=== PATIENT | male | born 1935 | race Two or more races ===

== ENCOUNTER → 2016-05-25 | Outpatient (CLI) | payer OTHER ==
[~2016-05-25] MED LIST: BRIM0.1S3 OP; LATA0.0015 OP; TIMO0.5S32 OP
[2016-05-25 09:11] LABS: Urine RBC None Seen /hpf (0 - 3)
[2016-05-25 09:26] LABS: Basophils # (auto) 0 uL; Basophils % (auto) 0.7 % (0.0-2.0); Eosinophils # (auto) 0.2 uL; Eosinophils % (auto) 3.2 % (0.0-7.0); Hematocrit 45.7 % (41.0-53.0); Hemoglobin 15.3 g/dL (13.5-17.5); Lymphocytes # (auto) 1.2 uL; Lymphocytes % (auto) 24.1 % (10.0-50.0); Mean Corpuscular Hgb Conc. 33.4 g/dL (32.0-36.0); Mean Corpuscular Volume 98.7 fL (80.0-100.0); Mean Platelet Volume 10.8 fL (7.4-10.4); Monocytes # (auto) 0.5 uL; Monocytes % (auto) 10.1 % (0.0-12.0); Neutrophils # (auto) 3.2 uL; Neutrophils % (auto) 61.9 % (37.0-80.0); Platelet Count (auto) 150 10^3/uL (140-450); Red Cell Distribution Width 14.3 % (11.6-16.0); White Blood Cell 5.1 10^3/uL (4.4-10.8)
[2016-05-25 09:37] LABS: Urine Bilirubin Negative (Negative); Urine Blood Negative /uL (Negative); Urine Color Yellow (Yellow); Urine Glucose Normal (Normal); Urine Ketone Negative (Negative); Urine Nitrite Negative (Negative); Urine Squamous Epithelial Cell FEW /hpf (<5); Urine Urobilinogen Normal (Negative)
[2016-05-25 09:42] LABS: Albumin 3.6 g/dL (3.4-5.0); BUN/Creatinine Ratio 25.8; Bilirubin, Total 0.8 mg/dL (0.2-1.0); Calcium 8.6 mg/dL (8.5-10.1); Potassium 4.4 mmol/L (3.5-5.1); Total Protein 6.9 g/dL (6.4-8.2)
== END | disposition home or self-care (01) ==
LOC: LAB 08:21
PROVIDERS: ATTEND Internal Medicine
DX: I10 Essential (primary) hypertension (principal); Z00.00 Encounter for general adult medical examination without abnormal findings; E55.9 Vitamin D deficiency, unspecified
CPT/HCPCS: 36415; 80053; 80061; 81001; 82306; 84153; 85025

== ENCOUNTER → 2016-06-29 | Outpatient (CLI) | payer OTHER | END | disposition home or self-care (01) | LOC: LAB 10:56 | PROVIDERS: ATTEND Psychiatry & Neurology Neurology | DX: G30.1 Alzheimer's disease with late onset (principal) | CPT/HCPCS: 84207; 84425 ==

== ENCOUNTER → 2017-04-05 | Outpatient (CLI) | payer OTHER ==
[2017-04-05 10:34] LABS: Albumin 3.9 g/dL (3.4-5.0); BUN/Creatinine Ratio 29.8; Bilirubin, Total 0.7 mg/dL (0.2-1.0); Calcium 8.7 mg/dL (8.5-10.1); Potassium 3.9 mmol/L (3.5-5.1); Total Protein 7.3 g/dL (6.4-8.2)
[2017-04-05 10:42] LABS: Basophils # (auto) 0 uL; Basophils % (auto) 0.6 % (0.0-2.0); Eosinophils # (auto) 0.2 uL; Eosinophils % (auto) 3.1 % (0.0-7.0); Hematocrit 45.2 % (41.0-53.0); Hemoglobin 15.3 g/dL (13.5-17.5); Lymphocytes # (auto) 1.2 uL; Lymphocytes % (auto) 23.9 % (10.0-50.0); Mean Corpuscular Hemoglobin 33.7 pg (28.0-32.0); Mean Corpuscular Hgb Conc. 33.8 g/dL (32.0-36.0); Mean Corpuscular Volume 99.6 fL (80.0-100.0); Monocytes # (auto) 0.5 uL; Monocytes % (auto) 10.2 % (0.0-12.0); Neutrophils # (auto) 3.1 uL; Neutrophils % (auto) 62.2 % (37.0-80.0); Nucleated Red Blood Cells % 0.1 %; Platelet Count (auto) 163 10^3/uL (140-450); Red Blood Cells 4.54 10^6/uL (4.5-5.90); Red Cell Distribution Width 13.8 % (11.8-14.3); White Blood Cell 5.1 10^3/uL (4.4-10.8)
== END | disposition home or self-care (01) ==
LOC: LAB 09:27
PROVIDERS: ATTEND Physician Assistant
DX: N18.2 Chronic kidney disease, stage 2 (mild) (principal); E78.4 Other hyperlipidemia; D69.6 Thrombocytopenia, unspecified; E55.9 Vitamin D deficiency, unspecified
CPT/HCPCS: 36415; 80053; 80061; 82306; 84153; 85025

== ENCOUNTER 2017-10-21 22:17 | Emergency (ER) | payer OTHER ==
[~2017-10-21] VITALS: Ht 170.2 cm; Wt 63.5 kg
[2017-10-22 05:47] VITALS: BP 175/77
== END 2017-10-22 10:00 | disposition home or self-care (01) ==
LOC: MERGE 22:17 → ER 22:17
DX: S63.92XA Sprain of unspecified part of left wrist and hand, initial encounter (principal); E78.5 Hyperlipidemia, unspecified; W01.0XXA Fall on same level from slipping, tripping and stumbling without subsequent striking against object, initial encounter; Y93.89 Activity, other specified; Y99.8 Other external cause status; Y92.89 Other specified places as the place of occurrence of the external cause
CPT/HCPCS: 73130

== ENCOUNTER → 2018-01-08 | Outpatient (CLI) | payer OTHER | END | disposition home or self-care (01) | LOC: XYW 11:07 | PROVIDERS: ATTEND Internal Medicine Cardiovascular Disease | DX: I35.1 Nonrheumatic aortic (valve) insufficiency (principal) | CPT/HCPCS: 93306 ==

== ENCOUNTER → 2019-08-06 | Outpatient (CLI) | payer OTHER ==
[~2019-08-06] MED LIST changes: -LATA0.0015 OP; +LATA0.0019 OP
== END | disposition home or self-care (01) ==
LOC: XYW 10:05
PROVIDERS: ATTEND Internal Medicine
DX: I10 Essential (primary) hypertension (principal); R07.9 Chest pain, unspecified
CPT/HCPCS: 93306

== ENCOUNTER → 2019-09-29 | Outpatient (CLI) | payer OTHER ==
[~2019-09-29] VITALS: Ht 170.2 cm; Wt 72.6 kg
[~2019-09-29] MED LIST changes: +ADENOSINE 61 MG in GIVE UN-DILUTED 0 ML IV STA
[2019-09-29 08:58] VITALS: BP 180/77
== END | disposition home or self-care (01) ==
LOC: XY 07:33
PROVIDERS: ATTEND Internal Medicine
DX: I10 Essential (primary) hypertension (principal)
CPT/HCPCS: 78452; 93017; A9500; J0153

== ENCOUNTER → 2020-01-01 | Outpatient (CLI) | payer OTHER ==
[~2020-01-01] MED LIST changes: -ADENOSINE 61 MG in GIVE UN-DILUTED 0 ML IV STA
[2020-01-01 09:48] LABS: Albumin 3.7 g/dL (3.4-5.0); Calcium 8.7 mg/dL (8.5-10.1); Potassium 3.8 mmol/L (3.5-5.1)
[2020-01-01 09:54] LABS: Bilirubin, Total 1.1 mg/dL (0.2-1.0); Total Protein 6.8 g/dL (6.4-8.2)
== END | disposition home or self-care (01) ==
LOC: LAB 09:11
PROVIDERS: ATTEND Internal Medicine
DX: Z12.5 Encounter for screening for malignant neoplasm of prostate (principal); I10 Essential (primary) hypertension; E78.5 Hyperlipidemia, unspecified; I49.9 Cardiac arrhythmia, unspecified
CPT/HCPCS: 36415; 80053; 80061; 83036; 84153; 84443

== ENCOUNTER → 2020-08-12 | Outpatient (CLI) | payer OTHER ==
[2020-08-12 10:17] LABS: Albumin 3.5 g/dL (3.4-5.0); Potassium 3.9 mmol/L (3.5-5.1)
[2020-08-12 10:25] LABS: BUN/Creatinine Ratio 30.9; Bilirubin, Total 0.8 mg/dL (0.2-1.0); Calcium 8.4 mg/dL (8.5-10.1); Total Protein 6.8 g/dL (6.4-8.2)
== END | disposition home or self-care (01) ==
LOC: LAB 09:19
PROVIDERS: ATTEND Internal Medicine
DX: Z00.00 Encounter for general adult medical examination without abnormal findings (principal); R73.03 Prediabetes
CPT/HCPCS: 36415; 80053; 80061; 83036

== ENCOUNTER → 2021-10-10 | Outpatient (CLI) | payer OTHER | END | disposition home or self-care (01) | LOC: XYW 15:42 | PROVIDERS: ATTEND Internal Medicine | DX: I08.8 Other rheumatic multiple valve diseases (principal); I48.0 Paroxysmal atrial fibrillation | CPT/HCPCS: 93306 ==

== ENCOUNTER → 2021-10-24 | Outpatient (CLI) | payer OTHER | END | disposition home or self-care (01) | LOC: XYW 09:50 | PROVIDERS: ATTEND Internal Medicine | DX: I10 Essential (primary) hypertension (principal); I65.29 Occlusion and stenosis of unspecified carotid artery | CPT/HCPCS: 93886 ==

== ENCOUNTER → 2022-03-23 | Outpatient (CLI) | payer OTHER ==
[2022-03-23 11:04] LABS: Basophils # (auto) 0 10 ^3/uL (0-0.2); Basophils % (auto) 0.7 % (0.0-2.0); Eosinophils # (auto) 0.2 10 ^3/uL (0-0.8); Eosinophils % (auto) 3.5 % (0.0-7.0); Hematocrit 43.8 % (41.0-53.0); Hemoglobin 14.8 g/dL (13.5-17.5); Lymphocytes # (auto) 1.3 10 ^3/uL (0.4-5.4); Lymphocytes % (auto) 24.9 % (10.0-50.0); Mean Corpuscular Hemoglobin 33.1 pg (28.0-32.0); Mean Corpuscular Hgb Conc. 33.8 g/dL (32.0-36.0); Monocytes # (auto) 0.6 10 ^3/uL (0-1.3); Monocytes % (auto) 11.4 % (0.0-12.0); Neutrophils # (auto) 3.2 10 ^3/uL (1.6-8.6); Neutrophils % (auto) 59.5 % (37.0-80.0); Nucleated Red Blood Cells % 0.1 %; Red Blood Cells 4.47 10^6/uL (4.5-5.90); White Blood Cell 5.3 10^3/uL (4.4-10.8)
[2022-03-23 11:25] LABS: Albumin 3.6 g/dL (3.4-5.0); Calcium 8.9 mg/dL (8.5-10.1); Potassium 4.1 mmol/L (3.5-5.1)
[2022-03-23 11:30] LABS: BUN/Creatinine Ratio 33.7; Bilirubin, Total 1.1 mg/dL (0.2-1.0); Total Protein 6.8 g/dL (6.4-8.2)
== END | disposition home or self-care (01) ==
LOC: LAB 10:44
PROVIDERS: ATTEND Internal Medicine
DX: I10 Essential (primary) hypertension (principal); R42 Dizziness and giddiness; F03.90 Unspecified dementia, unspecified severity, without behavioral disturbance, psychotic disturbance, mood disturbance, and anxiety; N40.0 Benign prostatic hyperplasia without lower urinary tract symptoms; E78.5 Hyperlipidemia, unspecified
CPT/HCPCS: 36415; 80053; 80061; 83036; 84443; 85025

== ENCOUNTER → 2023-03-01 | Outpatient (CLI) | payer OTHER ==
[~2023-03-01] MED LIST changes: -LATA0.0019 OP; +LATA0.008 OP
[2023-03-01 09:36] LABS: Urine WBC None Seen /hpf (0 - 3)
[2023-03-01 10:08] LABS: Basophils # (auto) 0 10 ^3/uL (0-0.2); Basophils % (auto) 0.7 % (0.0-2.0); Eosinophils # (auto) 0.2 10 ^3/uL (0-0.8); Eosinophils % (auto) 4.2 % (0.0-7.0); Hematocrit 44.6 % (41.0-53.0); Hemoglobin 14.9 g/dL (13.5-17.5); Lymphocytes # (auto) 1.5 10 ^3/uL (0.4-5.4); Lymphocytes % (auto) 28.9 % (10.0-50.0); Mean Corpuscular Hemoglobin 33.5 pg (28.0-32.0); Mean Corpuscular Hgb Conc. 33.4 g/dL (32.0-36.0); Mean Corpuscular Volume 100.3 fL (80.0-100.0); Monocytes # (auto) 0.6 10 ^3/uL (0-1.3); Neutrophils # (auto) 2.9 10 ^3/uL (1.6-8.6); Neutrophils % (auto) 55.2 % (37.0-80.0); Red Blood Cells 4.44 10^6/uL (4.5-5.90); Red Cell Distribution Width 14.3 % (11.8-14.3); White Blood Cell 5.3 10^3/uL (4.4-10.8)
[2023-03-01 10:17] LABS: Urine Bacteria NONE SEEN /hpf (None Seen); Urine Blood Negative /uL (Negative); Urine Clarity Clear (Clear); Urine Color Yellow (Yellow); Urine Protein, UAD Negative (Negative); Urine Specific Gravity 1.015 (1.001-1.035); Urine Urobilinogen Normal (Negative)
[2023-03-01 10:58] LABS: Triglycerides 137 mg/dL (< 150)
[2023-03-01 10:59] LABS: Alanine Aminotransferase 14 U/L (7-40); Albumin 3.9 g/dL (3.2-4.8); Alkaline Phosphatase 65 U/L (46-116); Anion Gap 6 (5-15); Aspartate Aminotransferase 18 U/L (13-40); BUN/Creatinine Ratio 27.8 (10.0-20.0); Bilirubin, Total 1.1 mg/dL (0.2-1.0); Blood Urea Nitrogen 22 mg/dL (9-23); Calcium 8.9 mg/dL (8.5-10.1); Carbon Dioxide 27 mmol/L (20-30); Chloride 105 mmol/L (98-107); Cholesterol 163 mg/dL (< 200); Glucose 88 mg/dL (74-106); HDL Cholesterol 43 mg/dL (40-59); LDL Cholesterol 113 mg/dL (< 100); Sodium 138 mmol/L (136-145); Total Protein 6.3 g/dL (5.7-8.2)
== END | disposition home or self-care (01) ==
LOC: LAB 09:24
PROVIDERS: ATTEND Internal Medicine
DX: R53.1 Weakness (principal); I10 Essential (primary) hypertension; E78.5 Hyperlipidemia, unspecified; I48.0 Paroxysmal atrial fibrillation
CPT/HCPCS: 36415; 80053; 80061; 81001; 83036; 84443; 85025

== ENCOUNTER → 2023-07-23 | Outpatient (CLI) | payer OTHER ==
[2023-07-23 10:37] LABS: Folate (Folic Acid) 21.9 ng/mL (>5.38)
== END | disposition home or self-care (01) ==
LOC: LAB 09:42
PROVIDERS: ATTEND Internal Medicine
DX: Z00.00 Encounter for general adult medical examination without abnormal findings (principal); E78.5 Hyperlipidemia, unspecified; F03.90 Unspecified dementia, unspecified severity, without behavioral disturbance, psychotic disturbance, mood disturbance, and anxiety
CPT/HCPCS: 36415; 82306; 82607; 82746; 84443

== ENCOUNTER → 2023-09-23 | Outpatient (CLI) | payer OTHER | END | disposition home or self-care (01) | LOC: XYW 15:49 | PROVIDERS: ATTEND Internal Medicine | DX: I08.2 Rheumatic disorders of both aortic and tricuspid valves (principal); R42 Dizziness and giddiness | CPT/HCPCS: 93306 ==

== ENCOUNTER → 2023-11-20 | Outpatient (CLI) | payer OTHER ==
[~2023-11-20] VITALS: Ht 167.6 cm; Wt 59.0 kg
[2023-11-20] MEDS: ADENOSINE 50 MG in GIVE UN-DILUTED 0 ML IV ONE (12:30)
== END | disposition home or self-care (01) ==
LOC: XYW 09:17
PROVIDERS: ATTEND Internal Medicine
DX: I48.91 Unspecified atrial fibrillation (principal)
CPT/HCPCS: 93017; J0153

== ENCOUNTER → 2024-07-08 | Outpatient (CLI) | payer OTHER ==
[2024-07-08 12:11] LABS: Urine Bacteria None Seen /hpf (None Seen)
[2024-07-08 12:18] LABS: Basophils # (auto) 0 10 ^3/uL (0-0.2); Basophils % (auto) 0.7 % (0.0-2.0); Eosinophils # (auto) 0.3 10 ^3/uL (0-0.8); Eosinophils % (auto) 4.5 % (0.0-7.0); Hematocrit 45.7 % (41.0-53.0); Hemoglobin 15.3 g/dL (13.5-17.5); Lymphocytes # (auto) 1.7 10 ^3/uL (0.4-5.4); Lymphocytes % (auto) 29.6 % (10.0-50.0); Mean Corpuscular Hemoglobin 33.6 pg (28.0-32.0); Mean Corpuscular Hgb Conc. 33.4 g/dL (32.0-36.0); Mean Corpuscular Volume 100.5 fL (80.0-100.0); Monocytes # (auto) 0.6 10 ^3/uL (0-1.3); Monocytes % (auto) 9.5 % (0.0-12.0); Neutrophils # (auto) 3.3 10 ^3/uL (1.6-8.6); Neutrophils % (auto) 55.7 % (37.0-80.0); Nucleated Red Blood Cells % 0.1 %; Platelet Count (auto) 139 10^3/uL (140-450); Red Blood Cells 4.55 10^6/uL (4.5-5.90); White Blood Cell 5.9 10^3/uL (4.4-10.8)
[2024-07-08 12:32] LABS: Alanine Aminotransferase 12 U/L (7-40); Alkaline Phosphatase 71 U/L (46-116); Anion Gap 5 (5-15); Aspartate Aminotransferase 14 U/L (13-40); BUN/Creatinine Ratio 33.7 (10.0-20.0); Calcium 9.1 mg/dL (8.7-10.4); Carbon Dioxide 28 mmol/L (20-31); Chloride 107 mmol/L (98-107); Glucose 89 mg/dL (74-106); Potassium 4.2 mmol/L (3.5-5.1); Sodium 140 mmol/L (136-145); Total Protein 6.6 g/dL (5.7-8.2)
[2024-07-08 12:33] LABS: Bilirubin, Total 1.3 mg/dL (0.2-1.0); Blood Urea Nitrogen 30 mg/dL (9-23)
[2024-07-08 12:37] LABS: Urine Blood Negative /uL (Negative); Urine Clarity Clear (Clear); Urine Color Yellow (Yellow); Urine Protein, UAD Negative (Negative); Urine Specific Gravity 1.025 (1.001-1.035); Urine Squamous Epithelial Cell None Seen /hpf (<5); Urine Urobilinogen Normal (Negative); Urine WBC < 1 /HPF (0-3)
== END | disposition home or self-care (01) ==
LOC: LAB 11:50
PROVIDERS: ATTEND Internal Medicine
DX: I10 Essential (primary) hypertension (principal); N40.0 Benign prostatic hyperplasia without lower urinary tract symptoms; E78.5 Hyperlipidemia, unspecified; F02.80 Dementia in other diseases classified elsewhere, unspecified severity, without behavioral disturbance, psychotic disturbance, mood disturbance, and anxiety
CPT/HCPCS: 36415; 80053; 81001; 82306; 83036; 85025

== ENCOUNTER 2024-12-01 17:55 | Inpatient (IN) | payer OTHER ==
[~2024-12-01] VITALS: Ht 167.6 cm; Wt 63.0 kg
--- NOTE | 2024-12-01 18:47 | ED.PDOC ---
GI ASSESSMENT HPI Comments 89-year-old male with a history of AFib on sotalol, dyslipidemia, BPH and glaucoma brought in by daughter for evaluation of generalized weakness progressively worsening over the past 4 weeks. Patient's daughter states the patient has been unsteady on his feet for the last 2 weeks to the point where he has been barely able to ambulate with a walker. She also reports he has been fatigued and sleeping more than usual. Of concern is that the patient continually complains of abdominal discomfort, asking for Maalox daily, which does not seem to improve his upset stomach. She states the patient has been attempting to have bowel movements multiple times a day, and can be heard groaning in pain while attempting to have a bowel movement. He denies any diarrhea, but states he feels constipated. He denies any abdominal pain at this time, however daughter states he has had significantly decreased p.o. intake and somewhat increased confusion. Daughter states the patient has not had fever, sick contacts, nausea or vomiting. Chief Complaint: General Weakness Time Seen by MD: 18:40 Primary Care Provider: UNKNOWN Reviewed Notes: Nurses Notes, Medications, Allergies Allergies: Coded Allergies: NO KNOWN ALLERGIES (Unverified , 11/20/23) Home Meds Reported Medications Brimonidine Tartrate (Alphagan P) 0.1 % Janeth, 0.1 % OP TID 08/29/13 Latanoprost (LATANOPROST) 0.005 % Janeth, 0.005 % OP HS 08/29/13 Timolol Maleate (Ophth) (Timolol Maleate) 0.5 % Janeth, 0.5 % OP BID 08/29/13 Information Source: Relative Mode of Arrival: Wheelchair Timing: Months Duration: Since onset Prehospital treatment: None Quality: None Vomitus: None Stool: Impaction Severity: Moderate Recent: None Recent Hx of: None Pain Location: Diffuse Modifying Factors: Nothing Associated sign and symptoms: Abdominal Pain Past Medical History PAST MEDICAL HISTORY: AFIB, Dementia Past Medical History (Other): Prostate Enlargement Surgical History (Other): right-eye Family History Family History: No family hx of HTN Social History Smoker: Non-Smoker Alcohol: Denies ETOH Use Drugs: Denies Drug Use Lives In: Home Constitutional: reports: weakness; denies: chills, diaphoresis, fatigue, fever, malaise, sweats, others EENTM: denies: blurred vision, double vision, ear bleeding, ear discharge, ear drainage, ear pain, ear ringing, eye pain, eye redness, hearing loss, mouth pain, mouth swelling, nasal discharge, nose bleeding, nose congestion, nose pain, photophobia, tearing, throat pain, throat swelling, voice changes, others Respiratory: denies: cough, hemoptysis, orthopnea, SOB at rest, shortness of breath, SOB with excertion, stridor, wheezing, others Cardiovascular: denies: chest pain, dizzy spells, diaphoresis, Dyspnea on exertion, edema, irregular heart beat, left arm pain, lightheadedness, palpitations, PND, syncope, others Gastrointestinal: reports: abdominal pain, poor appetite; denies: abdomen distended, blood streaked bowels, constipated, diarrhea, dysphagia, difficulty swallowing, hematemesis, melena, nausea, poor fluid intake, rectal bleeding, rectal pain, vomiting, others Genitourinary: denies: burning, dysuria, flank pain, frequency, hematuria, i ncontinence, penile discharge, penile sore, pain, testicle pain, testicle swelling, urgency, others Neurological: denies: dizziness, fainting, headache, left sided numbness, left sided weakness, numbness, paresthesia, pre-existing deficit, right sided numbness, right sided weakness, seizure, speech problems, tingling, tremors, weakness, others Musculoskeletal: denies: back pain, gout, joint pain, joint swelling, muscle pain, muscle stiffness, neck pain, others Integumetry: reports: others (confusion); denies: bruises, change in color, change in hair/nails, dryness, laceration, lesions, lumps, rash, wounds Allergic/Immunocompromised: denies: Difficulty Healing, Frequent Infections, Hives, Itching, others Hematologic/Lymphatic: denies: anemia, blood clots, easy bleeding, easy bruising, swollen glands, others Endocrine: denies: excessive hunger, excessive sweating, excessive thirst, excessive urination, flushing, intolerance to cold, intolerance to heat, unexplained weight gain, unexplained weight loss, others Psychiatric: denies: anxiety, bipolar disorder, depression, hopeless, panic disorder, schizophrenia, sleepless, suicidal, others All Other Systems: Reviewed and Negative Physical Exam General Appearance: Moderate Distress HEENT: Other (Pupils and face symmetric. Dry mucous membranes.) Neck: Full Range of Motion, Normal Inspection Respiratory: Lungs Clear, No Accessory Muscle Use, No Respiratory Distress, Normal Breath Sounds Cardiovascular: No Edema, No JVD, Regular Rate/Rhythm Breast Exam: Deferred Gastrointestinal: Non Tender, Soft Genitalia: Deferred Pelvic: Deferred Rectal: Deferred Extremities: Normal inspection, Normal range of motion, Non-tender, No pedal edema Neurologic: Alert (Oriented x3 (baseline per daughter)), Normal Affect, Normal Mood, Other (Moves all extremities. No gross focal deficit.) Cerebellar Function: NOT DONE Reflexes: NOT DONE Skin: Dry, Normal Color, Warm Lymphatic: NOT DONE Was a procedure done? Was a procedure done?: No GI differential Dx Differential Diagnosis: Angina/KS, Constipation, Diverticular disease, Hernia, Inflammatory BD, Ischemic Bowel, UTI, Dehydration, Electrolyte Imbalance, Food Poisoning, Bacterial, Viral, Hypovolemia, Impaction, Malnutrition, Renal Failure, Anemia, Stress Ulcer X-Ray, Labs, Meds, VS Vital Signs Date Time Temp Pulse Resp B/P (MAP) Pulse Ox O2 Delivery O2 Flow Rate FiO2 12/01/24 17:55 69 12/01/24 17:55 98.3 61 18 136/68 95 98.3 Lab Test 12/01/24 19:44 12/01/24 18:56 Range/Units Troponin I High Sensitivity 8 8 </=54 ng/L White Blood Count 5.4 4.4-10.8 10^3/uL Red Blood Count 4.53 4.5-5.90 10^6/uL Hemoglobin 15.3 13.5-17.5 g/dL Hematocrit 44.4 41.0-53.0 % Mean Corpuscular Volume 98.1 80.0-100.0 fL Mean Corpuscular Hemoglobin 33.9 H 28.0-32.0 pg Mean Corpuscular Hemoglobin Concent 34.5 32.0-36.0 g/dL Red Cell Distribution Width 14.2 11.8-14.3 % Platelet Count 140 140-450 10^3/uL Mean Platelet Volume 9.4 6.9-10.8 fL Neutrophils (%) (Auto) 63.6 37.0-80.0 % Lymphocytes (%) (Auto) 22.4 10.0-50.0 % Monocytes (%) (Auto) 11.4 0.0-12.0 % Eosinophils (%) (Auto) 2.1 0.0-7.0 % Basophils (%) (Auto) 0.5 0.0-2.0 % Neutrophils # (Auto) 3.4 1.6-8.6 10 ^3/uL Lymphocytes # (Auto) 1.2 0.4-5.4 10 ^3/uL Monocytes # (Auto) 0.6 0-1.3 10 ^3/uL Eosinophils # (Auto) 0.1 0-0.8 10 ^3/uL Basophils # (Auto) 0 0-0.2 10 ^3/uL Nucleated Red Blood Cells 0.0 % Sodium Level 143 136-145 mmol/L Potassium Level 3.9 3.5-5.1 mmol/L Chloride Level 109 H 98-107 mmol/L Carbon Dioxide Level 25 20-31 mmol/L Anion Gap 9 5-15 Blood Urea Nitrogen 31 H 9-23 mg/dL Creatinine 0.87 0.700-1.30 mg/dL Glomerular Filtration Rate Calc 83 >90 mL/min BUN/Creatinine Ratio 35.6 H 10.0-20.0 Serum Glucose 122 H 74-106 mg/dL Lactic Acid Level 1.0 0.4-2.0 mmol/L Calcium Level 8.8 8.7-10.4 mg/dL Total Bilirubin 1.4 H 0.2-1.0 mg/dL Aspartate Amino Transferase (AST) 24 13-40 U/L Alanine Aminotransferase (ALT) 17 7-40 U/L Alkaline Phosphatase 60 46-116 U/L B-Type Natriuretic Peptide 74.87 0-100 pg/mL Total Protein 6.2 5.7-8.2 g/dL Albumin 3.7 3.2-4.8 g/dL [address] [address] Ph: [phone] DIAGNOSTIC IMAGING Diagnostic Imaging Report : [id number] Signed PATIENT: JOSUE BALLARDACCT: [id number] UNIT: [id number] : 1935 LOC: ER ROOM / BED: / AGE / SEX: 89 / M ADM STATUS: REG ER SERVICE [id number] ORDERING PHYSICIAN: VANESSA MATHEWS MD PROCEDURE(s): CXRP - CHEST PORTABLE REASON: gen weak ORDER NUMBER(s): [id number], ACCESSION NUMBER(s): [id number] EXAM: XY CHEST PORTABLE CLINICAL HISTORY: gen weak TECHNIQUE: Single frontal view of the chest WID: COMPARISON: XY CHEST TWO VIEWS ROUTINE on DOS: 07/23/23 FINDINGS: Lines and tubes: None Chest: The heart size and pulmonary vasculature is within normal limits. Calcified plaque projects over the aortic arch. No pleural effusion, pneumothorax, or consolidation. The osseous structures are grossly intact. IMPRESSION: 1. No acute cardiopulmonary abnormality. ATED BY: YNES BUSTAMANTE MD DICTATED DATE/TIME: 12/01/241920 SIGNED BY: YNES BUSTAMANTE MD SIGNED DATE/TIME: 12/01/241920 CC: [place] [id number] Ph: [phone] DIAGNOSTIC IMAGING Diagnostic Imaging Report : [id number] Signed PATIENT: JOSUE BALLARDACCT: [id number] UNIT: [id number] : 1935 LOC: ER ROOM / BED: / AGE / SEX: 89 / M ADM STATUS: REG ER SERVICE 44 ORDERING PHYSICIAN: VANESSA MATHEWS MD PROCEDURE(s): ABPL - CT AB PEL WO CON-NO ORAL OR IV REASON: abdominal pain, painful BMs, poor po intake ORDER NUMBER(s): [id number], ACCESSION NUMBER(s): [id number] Exam: CT CT AB PEL WO CON-NO ORAL OR IV History: abdominal pain, painful BMs, poor po intake Comparison Study: [facility] on DOS: 10/10/21 TECHNIQUE: Multidetector CT of the abdomen and pelvis was performed from lung bases to pubic symphysis. Imaging was performed without IV contrast. Axial, coronal and sagittal multiplanar reformats were obtained from the axial data set by the technologist. Radiation Dose Information: CT Dose: CTDI volume is 5.45 mGy. Dose-length product is 3.92 mGy*cm FINDINGS: Bibasilar atelectasis. Partially visualized heart is unremarkable. Micronodular contour of the liver. Otherwise, liver, spleen, gallbladder, pancreas and adrenal glands are unremarkable. 7 x 5.4 x 7.2 cm mass of the lower pole of the right kidney which does not measure simple fluid. Mild nonspecific bilateral perinephric fat stranding. Thickening of the urinary bladder which may be from inadequate distention. Prostate measures 3.6 x 5.5 x 5 cm. Stomach is unremarkable. Small bowel loops are unremarkable. Appendix is unremarkable. Large amount of fecal material within the colon with rectal fecal impaction. Rectal wall thickening with perirectal edema. No evidence of intraperitoneal free air or free fluid. No evidence of aortic aneurysm. Moderate atherosclerotic calcification of the aorta and bilateral iliacs. No significant lymphadenopathy. Umbilical region soft tissue thickening. Soft tissues otherwise unremarkable. Sclerotic focus of the left pelvic bone which may represent a bone island with a blastic lesion not excluded. IMPRESSION: Constipation with rectal fecal impaction and rectal stercoral colitis. 7 x 5.4 x 7.2 cm mass of the lower pole of the right kidney which does not measure as simple fluid. Ultrasound and contrast-enhanced imaging is recommended for further evaluation. Enlarged prostate. Recommend correlation with PSA. Mild wall thickening of the urinary bladder which may be due to inadequate distention. Correlation with urinalysis is recommended to exclude cystitis. ATED BY: MARLA HOLCOMB DO DICTATED DATE/TIME: 12/01/241931 SIGNED BY: MARLA HOLCOMB DO SIGNED DATE/TIME: 12/01/241931 CC: X-Ray, Labs, Meds, VS Comment 89-year-old male with a history of AFib on sotalol, dyslipidemia, BPH and glaucoma presenting with generalized weakness, constipation, painful bowel movements, upset stomach, decreased p.o. intake and fatigue. Vitals unremarkable Exam unremarkable Chest x-ray unremarkable CT abdomen and pelvis IMPRESSION: Constipation with rectal fecal impaction and rectal stercoral colitis. 7 x 5.4 x 7.2 cm mass of the lower pole of the right kidney which does not measure as simple fluid. Ultrasound and contrast-enhanced imaging is recommended for further evaluation. Enlarged prostate. Recommend correlation with PSA. Mild wall thickening of the urinary bladder which may be due to inadequate distention. Correlation with urinalysis is recommended to exclude cystitis. CBC unremarkable, CMP remarkable for BUN 31, lactate normal, troponin negative. BNP pending Patient treated with the following in the ED: 1 L 0.9 normal saline IV bolus, Protonix 40 mg IV, Zosyn 4.5 g IV On re-evaluation, patient denies any abdominal pain. Abdominal exam is benign. Plan is to admit the patient for disimpaction, IV antibiotics and hydration. Time of 1ST Reevaluation: 19:10 Reevaluation 1ST: Unchanged Patient Education/Counseling: Diagnosis, Treatment Family Education/Counseling: Diagnosis, Treatment SEPSIS Sepsis Screen Date sepsis recognized/suspect: Dec 01, 2024 Time Sepsis recognized/suspect: 1754 Recent Procedure: No On Antibiotic Therapy: No Respiratory Rate >20: No Heart Rate >90: No Temp<36 C (96.8 F) or >38.3 C: No SBP <90 or MAP <65 mmHG: No New Acute Mental Status Change: No Is the patient on CPAP, BIPAP,: No Physician Orders Electrocardigram (12/01/24 17:57) B-Type Natriuretic Peptide (12/01/24 18:45) Chest Portable (12/01/24 18:45) Urinalysis (12/01/24 18:45) Ct Ab Pel Wo Con-No Oral Or Iv (12/01/24 18:45) Blood Culture (12/01/24 18:45) Urine Bacterial Culture (12/01/24 18:45) Troponin-I Hs (12/01/24 19:45) Troponin-I Hs (12/01/24 21:45) Vital Signs Date Time Temp Pulse Resp B/P (MAP) Pulse Ox O2 Delivery O2 Flow Rate FiO2 12/01/24 17:55 69 12/01/24 17:55 98.3 61 18 136/68 95 98.3 Laboratory Tests Test 12/01/24 18:56 Lactic Acid Level 1.0 mmol/L (0.4-2.0) White Blood Count 5.4 10^3/uL (4.4-10.8) Departure 1 Departure Time of Disposition: 20:28 Impression: Primary Impression: Fecal impaction Additional Impressions: Stercoral colitis Dehydration Failure to thrive in adult Disposition: ADMITTED INPATIENT Admit to: Med Surg Condition: Guarded Critical Care Note Critical Care Time?: No Stability Stability form required: No Heart Score Heart Score: Heart Score Response (Comments) Value History N/A 0 EKG N/A 0 Age N/A 0 Risk Factors N/A 0 Troponin N/A 0 Total 0 I personally scribed for VANESSA MATHEWS MD ([email or web address]) on 12/01/24 at 18:47. Electronically submitted by Aisha Haro [email or web address]). I personally scribed for VANESSA MATHEWS MD ([email or web address]) on 12/01/24 at 19:42. Electronically submitted by Aisha Haro ([email or web address]). I personally scribed for VANESSA MATHEWS MD ([email or web address]) on 12/01/24 at 19:43. Electronically submitted by Aisha Haro ([email or web address]). VANESSA MATHEWS MD Dec 01, 2024 18:47
[2024-12-01 19:13] LABS: Hematocrit 44.4 % (41.0-53.0); Hemoglobin 15.3 g/dL (13.5-17.5); Mean Corpuscular Hemoglobin 33.9 pg (28.0-32.0); Mean Corpuscular Volume 98.1 fL (80.0-100.0); Nucleated Red Blood Cells % 0.0 %
--- NOTE | 2024-12-01 19:23 | DVH ---
EXAM: XY CHEST PORTABLE CLINICAL HISTORY: gen weak TECHNIQUE: Single frontal view of the chest WID: COMPARISON: XY CHEST TWO VIEWS ROUTINE on DOS: 07/23/23 FINDINGS: Lines and tubes: None Chest: The heart size and pulmonary vasculature is within normal limits. Calcified plaque projects over the aortic arch. No pleural effusion, pneumothorax, or consolidation. The osseous structures are grossly intact. IMPRESSION: 1. No acute cardiopulmonary abnormality.
[2024-12-01 19:30] LABS: Alanine Aminotransferase 17 U/L (7-40); Albumin 3.7 g/dL (3.2-4.8); Alkaline Phosphatase 60 U/L (46-116); Anion Gap 9 (5-15); BUN/Creatinine Ratio 35.6 (10.0-20.0); Calcium 8.8 mg/dL (8.7-10.4); Carbon Dioxide 25 mmol/L (20-31); Potassium 3.9 mmol/L (3.5-5.1); Sodium 143 mmol/L (136-145); Total Protein 6.2 g/dL (5.7-8.2)
[2024-12-01 19:32] LABS: Bilirubin, Total 1.4 mg/dL (0.2-1.0); Blood Urea Nitrogen 31 mg/dL (9-23); Chloride 109 mmol/L (98-107); Glucose 122 mg/dL (74-106)
--- NOTE | 2024-12-01 19:34 | DVH ---
Exam: CT CT AB PEL WO CON-NO ORAL OR IV History: abdominal pain, painful BMs, poor po intake Comparison Study: ECID on DOS: 10/10/21 TECHNIQUE: Multidetector CT of the abdomen and pelvis was performed from lung bases to pubic symphysi s. Imaging was performed without IV contrast. Axial, coronal and sagittal multiplanar reformats were obtained from the axial data set by the technologist. Radiation Dose Information: CT Dose: CTDI volume is 5.45 mGy. Dose-length product is 3.92 mGy*cm FINDINGS: Bibasilar atelectasis. Partially visualized heart is unremarkable. Micronodular contour of the liver. Otherwise, liver, spleen, gallbladder, pancreas and adrenal glands are unremarkable. 7 x 5.4 x 7.2 cm mass of the lower pole of the right kidney which does not measure simple fluid. Mild nonspecific bilateral perinephric fat stranding. Thickening of the urinary bladder which may be from inadequate distention. Prostate measures 3.6 x 5.5 x 5 cm. Stomach is unremarkable. Small bowel loops are unremarkable. Appendix is unremarkable. Large amount of fecal material within the colon with rectal fecal impaction. Rectal wall thickening with perirecta l edema. No evidence of intraperitoneal free air or free fluid. No evidence of aortic aneurysm. Moderate atherosclerotic calcification of the aorta and bilateral il iacs. No significant lymphadenopathy. Umbilical region soft tissue thickening. Soft tissues otherwise unremarkable. Sclerotic focus of the left pelvic bone which may represent a bone island with a blastic lesion not excluded. IMPRESSION: Constipation with rectal fecal impaction and rectal stercoral colitis. 7 x 5.4 x 7.2 cm mass of the lower pole of the right kidney which does not measure as simple fluid. U ltrasound and contrast-enhanced imaging is recommended for further evaluation. Enlarged prostate. Recommend correlation with PSA. Mild wall thickening of the urinary bladder which may be due to inadequate distention. Correlation wi urinalysis is recommended to exclude cystitis.
[2024-12-01] MEDS: PANTOPRAZOLE 40 MG/10 ML VIAL INJ IV ONE (20:17)
[2024-12-01] MEDS: SODIUM CHLORIDE 0.9% 1,000 ML IV ONE (20:17)
[2024-12-02] MEDS ORDERED: ONDANSETRON HCL 4 MG/2 ML VIAL IV PRN
[2024-12-02] MEDS ORDERED: ACETAMINOPHEN 325 MG TAB PO PRN
--- NOTE | 2024-12-02 00:13 | DVHHP2 ---
History of Present Illness Reason for Visit: Generalized weakness History of Present Illness 89-year-old male presents for evaluation of generalized weakness. Patient is brought into the emergency department by his daughter who reports patient having increased weakness and fatigue. Patient having difficulty ambulating as well. The patient has been diagnosed with dementia the yet he has not been started on any medication. Also patient complaining of some abdominal discomfort and feeling constipated. There was also decreased oral intake over the past couple of days and increased confusion. Past Medical History BPH, AFib, dementia Past Surgical History eye surgery Family History Noncontributory Smoke: No ALCOHOL: none Drugs: None Lives: with Family Review of Systems Review of Systems Review of systems are currently negative otherwise addressed in HPI. Allergies: Coded Allergies: NO KNOWN ALLERGIES (Unverified , 11/20/23) Medications Current Medications Medications Dose Ordered Sig/Marilyn Route Start Time Stop Time Status Last Admin Dose Admin Docusate Sodium 100 mg BID PO 12/02/24 10:00 UNV Ceftriaxone Sodium 50 ml @ 100 mls/hr DAILY@ IV 12/02/24 09:00 UNV Sotalol HCl 80 mg DAILY PO 12/02/24 10:00 UNV Tamsulosin HCl 0.4 mg QPM PO 12/02/24 18:00 UNV Finasteride 5 mg DAILY PO 12/02/24 10:00 UNV Ceftriaxone Sodium 50 ml @ 100 mls/hr DAILY@09 IV 12/02/24 09:00 UNV Pantoprazole Sodium 40 mg DAILY@0600 PO 12/02/24 06:00 UNV Ondansetron HCl 4 mg Q4HP PRN IV 12/02/24 00:00 UNV Acetaminophen 650 mg Q6HP PRN PO 12/02/24 00:00 UNV Exam Vital Signs Vital Signs Date Time Temp Pulse Resp B/P (MAP) Pulse Ox O2 Delivery O2 Flow Rate FiO2 12/01/24 17:55 69 12/01/24 17:55 98.3 18 136/68 95 98.3 Exam Gen: 89-year-old male in mild distress Skin: Warm, dry, normal color and texture, no rash. HEENT: Normocephalic atraumatic, mucous membranes moist and pink. Neck: Cervical and supraclavicular nodes normal without enlargement, trachea is midline, thyroid gland is normal without masses. Pulmonary: Clear to auscultation and percussion bilaterally. Cardiac: Regular rate and rhythm. No murmur Abdomen: Soft, nontender, nondistended, bowel sounds present all 4 quadrants, no guarding, no rigidity, no organomegaly. Extremities: No cyanosis, clubbing, no edema Neuro: Cranial nerves II through XII grossly intact, normal affect and speech, no focal motor deficits. Labs/Xrays ORDERING PHYSICIAN: VANESSA MATHEWS MD PROCEDURE(s): ABPL - CT AB PEL WO CON-NO ORAL OR IV REASON: abdominal pain, painful BMs, poor po intake ORDER NUMBER(s): [id number], ACCESSION NUMBER(s): [id number] Exam: CT CT AB PEL WO CON-NO ORAL OR IV History: abdominal pain, painful BMs, poor po intake Comparison Study: ECID on DOS: 10/10/21 TECHNIQUE: Multidetector CT of the abdomen and pelvis was performed from lung bases to pubic symphysis. Imaging was performed without IV contrast. Axial, coronal and sagittal multiplanar reformats were obtained from the axial data set by the technologist. Radiation Dose Information: CT Dose: CTDI volume is 5.45 mGy. Dose-length product is 3.92 mGy*cm FINDINGS: Bibasilar atelectasis. Partially visualized heart is unremarkable. Micronodular contour of the liver. Otherwise, liver, spleen, gallbladder, pancreas and adrenal glands are unremarkable. 7 x 5.4 x 7.2 cm mass of the lower pole of the right kidney which does not measure simple fluid. Mild nonspecific bilateral perinephric fat stranding. Thickening of the urinary bladder which may be from inadequate distention. Prostate measures 3.6 x 5.5 x 5 cm. Stomach is unremarkable. Small bowel loops are unremarkable. Appendix is unremarkable. Large amount of fecal material within the colon with rectal fecal impaction. Rectal wall thickening with perirectal edema. No evidence of intraperitoneal free air or free fluid. No evidence of aortic aneurysm. Moderate atherosclerotic calcification of the aorta and bilateral iliacs. No significant lymphadenopathy. Umbilical region soft tissue thickening. Soft tissues otherwise unremarkable. Sclerotic focus of the left pelvic bone which may represent a bone island with a blastic lesion not excluded. IMPRESSION: Constipation with rectal fecal impaction and rectal stercoral colitis. 7 x 5.4 x 7.2 cm mass of the lower pole of the right kidney which does not measure as simple fluid. Ultrasound and contrast-enhanced imaging is recommended for further evaluation. Enlarged prostate. Recommend correlation with PSA. Mild wall thickening of the urinary bladder which may be due to inadequate distention. Correlation with urinalysis is recommended to exclude cystitis. RING PHYSICIAN: VANESSA MATHEWS MD PROCEDURE(s): CXRP - CHEST PORTABLE REASON: gen weak ORDER NUMBER(s): [id number], ACCESSION NUMBER(s): [id number] EXAM: XY CHEST PORTABLE CLINICAL HISTORY: sean TECHNIQUE: Single frontal view of the chest WID: COMPARISON: XY CHEST TWO VIEWS ROUTINE on DOS: 07/23/23 FINDINGS: Lines and tubes: None Chest: The heart size and pulmonary vasculature is within normal limits. Calcified plaque projects over the aortic arch. No pleural effusion, pneumothorax, or consolidation. The osseous structures are grossly intact. IMPRESSION: 1. No acute cardiopulmonary abnormality. Labs Test 12/01/24 19:44 12/01/24 18:56 Range/Units Troponin I High Sensitivity 8 </=54 ng/L White Blood Count 5.4 4.4-10.8 10^3/uL Red Blood Count 4.53 4.5-5.90 10^6/uL Hemoglobin 15.3 13.5-17.5 g/dL Hematocrit 44.4 41.0-53.0 % Mean Corpuscular Volume 98.1 80.0-100.0 fL Mean Corpuscular Hemoglobin 33.9 H 28.0-32.0 pg Mean Corpuscular Hemoglobin Concent 34.5 32.0-36.0 g/dL Red Cell Distribution Width 14.2 11.8-14.3 % Platelet Count 140 140-450 10^3/uL Mean Platelet Volume 9.4 6.9-10.8 fL Neutrophils (%) (Auto) 63.6 37.0-80.0 % Lymphocytes (%) (Auto) 22.4 10.0-50.0 % Monocytes (%) (Auto) 11.4 0.0-12.0 % Eosinophils (%) (Auto) 2.1 0.0-7.0 % Basophils (%) (Auto) 0.5 0.0-2.0 % Neutrophils # (Auto) 3.4 1.6-8.6 10 ^3/uL Lymphocytes # (Auto) 1.2 0.4-5.4 10 ^3/uL Monocytes # (Auto) 0.6 0-1.3 10 ^3/uL Eosinophils # (Auto) 0.1 0-0.8 10 ^3/uL Basophils # (Auto) 0 0-0.2 10 ^3/uL Nucleated Red Blood Cells 0.0 % Sodium Level 143 136-145 mmol/L Potassium Level 3.9 3.5-5.1 mmol/L Chloride Level 109 H 98-107 mmol/L Carbon Dioxide Level 25 20-31 mmol/L Anion Gap 9 5-15 Blood Urea Nitrogen 31 H 9-23 mg/dL Creatinine 0.87 0.700-1.30 mg/dL Glomerular Filtration Rate Calc 83 >90 mL/min BUN/Creatinine Ratio 35.6 H 10.0-20.0 Serum Glucose 122 H 74-106 mg/dL Lactic Acid Level 1.0 0.4-2.0 mmol/L Calcium Level 8.8 8.7-10.4 mg/dL Total Bilirubin 1.4 H 0.2-1.0 mg/dL Aspartate Amino Transferase (AST) 24 13-40 U/L Alanine Aminotransferase (ALT) 17 7-40 U/L Alkaline Phosphatase 60 46-116 U/L B-Type Natriuretic Peptide 74.87 0-100 pg/mL Total Protein 6.2 5.7-8.2 g/dL Albumin 3.7 3.2-4.8 g/dL SEPSIS Sepsis Screen Date sepsis recognized/suspect: Dec 01, 2024 Time Sepsis recognized/suspect: 1754 Recent Procedure: No On Antibiotic Therapy: No Respiratory Rate >20: No Heart Rate >90: No Temp<36 C (96.8 F) or >38.3 C: No SBP <90 or MAP <65 mmHG: No New Acute Mental Status Change: No Is the patient on CPAP, BIPAP,: No Physician Orders Electrocardigram (12/01/24 17:57) Chest Portable (12/01/24 18:45) Ct Ab Pel Wo Con-No Oral Or Iv (12/01/24 18:45) Blood Culture (12/01/24 18:45) Urine Bacterial Culture (12/01/24 18:45) Urinalysis (12/01/24 22:26) Admit (12/01/24 23:54) Docusate Sodium Capsule (Colace Capsule) (12/02/24 10:00) Fleet Enema Adult (12/02/24 00:00) * [facility]st (12/01/24 23:58) Ceftriaxone 1gm/50ml D5w (Rocephin) (12/02/24 09:00) Sotalol Hcl (Betapace) (12/02/24 10:00) Tamsulosin Hydrochloride (Flomax) (12/02/24 18:00) Finasteride Tablet (Proscar Tablet) (12/02/24 10:00) Ceftriaxone 1gm/50ml D5w (Rocephin) (12/02/24 09:00) Pantoprazole Tablet (Protonix Tablet) (12/02/24 06:00) Basic Metabolic Panel (12/02/24 04:00) Ondansetron Hcl (Zofran) (12/02/24 00:00) Cardiac Diet-2gna,Lofat,Lochol (12/02/24 Breakfast) Condition: Stable (12/01/24 23:58) Acetaminophen Tablet (Tylenol Tablet) (12/02/24 00:00) Bedside Commode (12/01/24 23:58) Vital Signs Date Time Temp Pulse Resp B/P (MAP) Pulse Ox O2 Delivery O2 Flow Rate FiO2 12/01/24 17:55 69 12/01/24 17:55 98.3 61 18 136/68 95 98.3 Laboratory Tests Test 12/01/24 18:56 Lactic Acid Level 1.0 mmol/L (0.4-2.0) White Blood Count 5.4 10^3/uL (4.4-10.8) Medications Medications Dose Ordered Sig/Marilyn Route Start Time Stop Time Status Last Admin Dose Admin Pantoprazole Sodium 40 mg ONCE ONCE IV 12/01/24 18:45 12/01/24 18:49 DC 12/01/24 20:17 40 MG Sodium Chloride 1,000 ml @ 1,000 mls/hr Q1H ONCE IV 12/01/24 18:45 12/01/24 19:44 DC 12/01/24 20:17 1,000 MLS/HR Assessment/Plan Assessment/Plan Assessment Fecal impaction ? Stercoral colitis Dementia History of atrial fibrillation Failure to thrive Plan Admit the patient to [facility] to the hospitalist GI consult Rocephin Bowel regimen Resume home medications Continue treatment per orders. Plan discussed with: Daughter My Orders Orders - RIGO VOSS Procedure Category Date Status Time Urinalysis LAB 12/01/24 Logged 22:26 Admit ADMIT 12/01/24 Transmitted 23:54 Docusate Sodium PHA 12/02/24 Logged Capsule (Colace 10:00 Fleet Enema Adult PHA 12/02/24 Logged 00:00 * [facility] CONS 12/01/24 Transmitted 23:58 Ceftriaxone 1gm/50ml PHA 12/02/24 Logged D5w (Rocephin) 09:00 Sotalol Hcl (Betapace) PHA 12/02/24 Logged 10:00 Tamsulosin PHA 12/02/24 Logged Hydrochloride (Flomax) 18:00 Finasteride Tablet PHA 12/02/24 Logged (Proscar Tablet) 10:00 Ceftriaxone 1gm/50ml PHA 12/02/24 Logged D5w (Rocephin) 09:00 Pantoprazole Tablet PHA 12/02/24 Logged (Protonix Tablet) 06:00 Basic Metabolic Panel LAB 12/02/24 Logged 04:00 Ondansetron Hcl PHA 12/02/24 Logged (Zofran) 00:00 Cardiac DIET 12/02/24 Transmitted Diet-2gna,Lofat,Lochol Breakfast Condition: Stable RIK 12/01/24 In Process 23:58 Acetaminophen Tablet PHA 12/02/24 Logged (Tylenol Tablet) 00:00 Bedside Commode RIK 12/01/24 In Process 23:58 Date of Service: Dec 01, 2024 Billing Provider: RIGO VOSS Common Visit Codes: [id number] INP/OBS CARE (MOD) RIGO VOSS Dec 02, 2024 00:13
[2024-12-02 02:46] VITALS: BP 156/68; PULSE 56; RESP 16; TEMP 98.8; O2SAT 97
[2024-12-02 03:21] VITALS: BP 136/85; PULSE 76; RESP 17; TEMP 97.3; O2SAT 96
[2024-12-02] MEDS: PIPERACILLIN-TAZO 4.5GM 100 ML IV ONE (03:22)
[2024-12-02] MEDS: FLEET ENEMA(ADULT) 135 ML PR ONE ×2 (03:22→14:23)
[2024-12-02 05:00] VITALS: BP 147/78; PULSE 53; RESP 17; TEMP 97.8; O2SAT 94
[2024-12-02] MEDS: PANTOPRAZOLE 40 MG TAB PO SCH (06:25)
[2024-12-02 09:13] VITALS: BP 171/77; PULSE 56; RESP 12; TEMP 97.6; O2SAT 98
[2024-12-02 09:59] LABS: Anion Gap 8 (5-15); Carbon Dioxide 26 mmol/L (20-31); Potassium 3.7 mmol/L (3.5-5.1); Sodium 142 mmol/L (136-145)
[2024-12-02 10:05] LABS: BUN/Creatinine Ratio 23.8 (10.0-20.0); Blood Urea Nitrogen 19 mg/dL (9-23); Glucose 81 mg/dL (74-106)
[2024-12-02 10:07] LABS: Calcium 8.4 mg/dL (8.7-10.4); Chloride 108 mmol/L (98-107)
[2024-12-02] MEDS: DOCUSATE SOD 100 MG CAP PO SCH (10:25)
[2024-12-02] MEDS: FINASTERIDE 5 MG TAB PO SCH (10:25)
[2024-12-02] MEDS: SOTALOL HCL 80 MG TAB PO SCH (10:26)
--- NOTE | 2024-12-02 11:58 | DVH ---
RENAL ULTRASOUND History: kidney mass Comparison: 12/01/2024 Technique: Multiple real-time sonographic images of the kidney and bladder were obtained in conjuncti on with Doppler imaging. Findings: The right kidney measures 12.7 cm and demonstrates no evidence of hydronephrosis, perinephric fluid c ollection, or shadowing stone. Right renal lower pole mass with internal vascularity measuring 6.2 x 4.9 cm. The left kidney measures 9.8 cm and demonstrates no evidence of hydronephrosis, perinephric fluid col lection, or shadowing stone. Urinary bladder: Prevoid urinary bladder volume is 383 mL. Impression: 6.2 cm right renal lower pole mass with internal vascularity, concerning for renal cell carcinoma and other neoplasms. Recommend MRI abdomen with and without contrast and urology consultation.
--- NOTE | 2024-12-02 12:54 | DVHINCON2 ---
GI Consult Consult Note GI consult note Date of Consultation: 12/02/2024 Chief Complaint: Fecal impaction Referring Physician: Parish BAUTISTA H&P: 89-year-old [place] Islander-speaking patient admitted with complains of generalized weakness. Daughter at bedside is translating. Patient has complains of abdominal discomfort mostly in the upper side on and off for the past 2-3 months. And also has decreased appetite per daughter. Possible weight loss but unsure how many lb. No nausea or vomiting. Patient recently was having multiple small bowel movements, no melena or red blood in stool. Last bowel movement this morning again small amount past only per patient. No colonoscopy in past Past Medical History: BPH, AFib, dementia Past Surgical History: Eye surgery Social History: NO smoking, drinking ETOH and use of illegal drugs. Family History: Noncontributory Review of Systems: Constitutional: no fever, chill, weight loss HEENT: no eye pain, no hearing loss, no oral lesion, no scleral icterus Heart: no chest pain, no chest pressure Lung: no cough, no dyspnea with exertion Abdomen: see HPI Physical exam: General: NAD, AAOX3 Chest: lung galindo clear to auscultation Heart: RRR, no murmur Abdomen: non-distended, no tenderness to palpation, +BS Labs: Labs Test 12/02/24 09:34 12/01/24 19:44 12/01/24 18:56 Range/Units Sodium Level 142 136-145 mmol/L Potassium Level 3.7 3.5-5.1 mmol/L Chloride Level 108 H 98-107 mmol/L Carbon Dioxide Level 26 20-31 mmol/L Anion Gap 8 5-15 Blood Urea Nitrogen 19 # 9-23 mg/dL Creatinine 0.80 0.700-1.30 mg/dL Glomerular Filtration Rate Calc 85 >90 mL/min BUN/Creatinine Ratio 23.8 H 10.0-20.0 Serum Glucose 81 74-106 mg/dL Calcium Level 8.4 L 8.7-10.4 mg/dL Troponin I High Sensitivity 8 </=54 ng/L White Blood Count 5.4 4.4-10.8 10^3/uL Red Blood Count 4.53 4.5-5.90 10^6/uL Hemoglobin 15.3 13.5-17.5 g/dL Hematocrit 44.4 41.0-53.0 % Mean Corpuscular Volume 98.1 80.0-100.0 fL Mean Corpuscular Hemoglobin 33.9 H 28.0-32.0 pg Mean Corpuscular Hemoglobin Concent 34.5 32.0-36.0 g/dL Red Cell Distribution Width 14.2 11.8-14.3 % Platelet Count 140 140-450 10^3/uL Mean Platelet Volume 9.4 6.9-10.8 fL Neutrophils (%) (Auto) 63.6 37.0-80.0 % Lymphocytes (%) (Auto) 22.4 10.0-50.0 % Monocytes (%) (Auto) 11.4 0.0-12.0 % Eosinophils (%) (Auto) 2.1 0.0-7.0 % Basophils (%) (Auto) 0.5 0.0-2.0 % Neutrophils # (Auto) 3.4 1.6-8.6 10 ^3/uL Lymphocytes # (Auto) 1.2 0.4-5.4 10 ^3/uL Monocytes # (Auto) 0.6 0-1.3 10 ^3/uL Eosinophils # (Auto) 0.1 0-0.8 10 ^3/uL Basophils # (Auto) 0 0-0.2 10 ^3/uL Nucleated Red Blood Cells 0.0 % Lactic Acid Level 1.0 0.4-2.0 mmol/L Total Bilirubin 1.4 H 0.2-1.0 mg/dL Aspartate Amino Transferase (AST) 24 13-40 U/L Alanine Aminotransferase (ALT) 17 7-40 U/L Alkaline Phosphatase 60 46-116 U/L B-Type Natriuretic Peptide 74.87 0-100 pg/mL Total Protein 6.2 5.7-8.2 g/dL Albumin 3.7 3.2-4.8 g/dL Imaging: CT abdomen pelvis IMPRESSION: Constipation with rectal fecal impaction and rectal stercoral colitis. 7 x 5.4 x 7.2 cm mass of the lower pole of the right kidney which does not measure as simple fluid. Ultrasound and contrast-enhanced imaging is recommended for further evaluation. Enlarged prostate. Recommend correlation with PSA. Mild wall thickening of the urinary bladder which may be due to inadequate distention. Correlation with urinalysis is recommended to exclude cystitis. Assessment: Fecal impaction Possible stercoral colitis rectally History of dementia Failure to thrive Plan: Discussed with papito Nava enema today Lactulose Regular diet as tolerated We will continue to monitor patient Discussed plan with patient and family at bedside Thank you for this consult Date of Service: Dec 02, 2024 Billing Provider: JOSE RAMON GARCIA Common Visit Codes: CONSULT ONLY Consultation Codes: [id number] CONSULT <60MIN JOSE RAMON GARCIA Dec 02, 2024 12:54
[2024-12-02 13:00] VITALS: BP 120/65; PULSE 50; RESP 12; TEMP 98; O2SAT 97
[2024-12-02] MEDS: POLYETHYLENE GLYCOL 17 GM PWDR PO ONE (14:23)
[2024-12-02] MEDS: GASTROGRAFIN 30 ML SOL ONE (16:17)
[2024-12-02 17:24] VITALS: BP 124/68; PULSE 71; RESP 14; TEMP 97.8; O2SAT 98
--- NOTE | 2024-12-02 17:42 | DVHDS2 ---
Discharge Summary Date of Admission Dec 01, 2024 at 23:54 Date of Discharge: Dec 02, 2024 Admitting Diagnosis Fecal Impaction Labs/Diagnostic Data: Laboratory Results Test 12/02/24 09:34 12/01/24 19:44 12/01/24 18:56 Sodium Level 142 mmol/L (136-145) Potassium Level 3.7 mmol/L (3.5-5.1) Chloride Level 108 mmol/L (98-107) Carbon Dioxide Level 26 mmol/L (20-31) Anion Gap 8 (5-15) Blood Urea Nitrogen 19 mg/dL (9-23) Creatinine 0.80 mg/dL (0.700-1.30) Glomerular Filtration Rate Calc 85 mL/min (>90) BUN/Creatinine Ratio 23.8 (10.0-20.0) Serum Glucose 81 mg/dL (74-106) Calcium Level 8.4 mg/dL (8.7-10.4) Troponin I High Sensitivity 8 ng/L (</=54) White Blood Count 5.4 10^3/uL (4.4-10.8) Red Blood Count 4.53 10^6/uL (4.5-5.90) Hemoglobin 15.3 g/dL (13.5-17.5) Hematocrit 44.4 % (41.0-53.0) Mean Corpuscular Volume 98.1 fL (80.0-100.0) Mean Corpuscular Hemoglobin 33.9 pg (28.0-32.0) Mean Corpuscular Hemoglobin Concent 34.5 g/dL (32.0-36.0) Red Cell Distribution Width 14.2 % (11.8-14.3) Platelet Count 140 10^3/uL (140-450) Mean Platelet Volume 9.4 fL (6.9-10.8) Neutrophils (%) (Auto) 63.6 % (37.0-80.0) Lymphocytes (%) (Auto) 22.4 % (10.0-50.0) Monocytes (%) (Auto) 11.4 % (0.0-12.0) Eosinophils (%) (Auto) 2.1 % (0.0-7.0) Basophils (%) (Auto) 0.5 % (0.0-2.0) Neutrophils # (Auto) 3.4 10 ^3/uL (1.6-8.6) Lymphocytes # (Auto) 1.2 10 ^3/uL (0.4-5.4) Monocytes # (Auto) 0.6 10 ^3/uL (0-1.3) Eosinophils # (Auto) 0.1 10 ^3/uL (0-0.8) Basophils # (Auto) 0 10 ^3/uL (0-0.2) Nucleated Red Blood Cells 0.0 % Lactic Acid Level 1.0 mmol/L (0.4-2.0) Total Bilirubin 1.4 mg/dL (0.2-1.0) Aspartate Amino Transferase (AST) 24 U/L (13-40) Alanine Aminotransferase (ALT) 17 U/L (7-40) Alkaline Phosphatase 60 U/L (46-116) B-Type Natriuretic Peptide 74.87 pg/mL (0-100) Total Protein 6.2 g/dL (5.7-8.2) Albumin 3.7 g/dL (3.2-4.8) Other Laboratory Tests 12/02/24 09:34 12/01/24 18:56 Brief Hx & Hospital Course: 89-year-old Israeli-speaking patient admitted with complains of generalized weakness. Daughter at bedside is translating. Patient has complains of abdominal discomfort mostly in the upper side on and off for the past 2-3 months. And also has decreased appetite per daughter. Patient had a CT Abd/Pelvis and underwent Enema, had multiple bowel movements. Daughter at bedside, explained the kidney mass needs further workup as it could possibly be Kidney Cancer. Advised to Dr. Ardon and Urology as outpatient. Condition at Discharge: Poor Final Diagnosis/Problems List Fecal Impaction Possible Kidney Cancer Discharge Disposition: Home Discharge Instruct/Medications Diet: See Comment Activity: Light activity Follow Up/Referral: Dr. Ardon Urology Scheduled Brimonidine Tartrate (Alphagan P), 0.1 % OP TID, (Reported) Latanoprost (Latanoprost), 0.005 % OP HS, (Reported) Timolol Maleate (Ophth) (Timolol Maleate), 0.5 % OP BID, (Reported) Discharge Statement: "Patient was advised to return to the ER or call 911 if any headaches, dizziness, shortness of breath, chest pain, abdominal pain, bleeding, fevers, or worsening of medical condition. Patient was counseled about treatment plan, medications, possible side effects, patientverbalized understanding. All questions were answered to the best of my ability. This discharge took greater then 30 minutes in planning, reviewing documentation, counseling the patient, and discussing with other team members." ASSESSMENT ASSESSMENT Assessment Date of Service: Dec 02, 2024 Billing Provider: JESSIE CONNOLLY MD Common Visit Codes: [id number] DISCH DAY >30min JESSIE CONNOLLY MD Dec 02, 2024 17:42
[2024-12-02] MEDS: TAMSULOSIN HYDROCHLORIDE 0.4 MG CAP PO SCH (18:03)
--- NOTE | 2024-12-02 19:38 | DVH ---
Procedure: XY SMALL BOWEL SERIES-W GASTROGRA Reason for study/Clinical History: impaction Comparison Study: None Technique: Single contrast small bowel series performed. FINDINGS/IMPRESSION: Initial nibbler operator view of the abdomen and pelvis appears demonstrates no acute process. Contrast is identified within the colon by 2 hours. This represents a normal small bowel transit derrick holder
[2024-12-02] MEDS ORDERED: LACTULOSE 20Gm/30ML SOLN PO SCH (22:00)
[2024-12-03 08:07] LABS: Prostate Specific Antigen 0.8 ng/mL (0.0-4.0)
== END 2024-12-02 19:25 | disposition home or self-care (01) | DRG 389 ==
LOC: ER 17:55 → OVERFLOW 23:54 → EAST 12-02 02:37
PROVIDERS: ADMIT Internal Medicine; ATTEND Internal Medicine
DX: K56.41 Fecal impaction (principal); C64.1 Malignant neoplasm of right kidney, except renal pelvis; K52.89 Other specified noninfective gastroenteritis and colitis; R62.7 Adult failure to thrive; F03.90 Unspecified dementia, unspecified severity, without behavioral disturbance, psychotic disturbance, mood disturbance, and anxiety; N40.0 Benign prostatic hyperplasia without lower urinary tract symptoms; I48.91 Unspecified atrial fibrillation; E86.0 Dehydration; E78.5 Hyperlipidemia, unspecified; Z68.22 Body mass index [BMI] 22.0-22.9, adult
CPT/HCPCS: 36415; 71045; 74176; 74250; 76775; 80048; 80053; 83605; 83880; 84154; 84484; 85025; 87040; 96361; 96374; 97163; G0378; J2470; J2543

== ENCOUNTER 2024-12-24 17:40 | Emergency (ER) | payer OTHER ==
[~2024-12-24] VITALS: Ht 170.2 cm; Wt 61.0 kg
[2024-12-24 18:16] LABS: Hematocrit 43.4 % (41.0-53.0); Hemoglobin 15.0 g/dL (13.5-17.5); Mean Corpuscular Hemoglobin 34.0 pg (28.0-32.0); Mean Corpuscular Volume 98.5 fL (80.0-100.0); Nucleated Red Blood Cells % 0.0 %
[2024-12-24 18:39] LABS: Alanine Aminotransferase 13 U/L (7-40); Albumin 3.7 g/dL (3.2-4.8); Alkaline Phosphatase 84 U/L (46-116); Anion Gap 7 (5-15); BUN/Creatinine Ratio 23.3 (10.0-20.0); Bilirubin, Total 0.9 mg/dL (0.2-1.0); Calcium 8.9 mg/dL (8.7-10.4); Carbon Dioxide 27 mmol/L (20-31); Chloride 102 mmol/L (98-107); Potassium 4.6 mmol/L (3.5-5.1); Sodium 136 mmol/L (136-145); Total Protein 6.6 g/dL (5.7-8.2)
[2024-12-24 18:40] LABS: Blood Urea Nitrogen 24 mg/dL (9-23); Glucose 108 mg/dL (74-106)
--- NOTE | 2024-12-24 18:41 | ED.PDOC ---
GI ASSESSMENT HPI Comments 89-year-old male who presents to the ED with c/c of constipation Patient presents what sign who states the patient has not had a bowel movement for the past 3 days Patient was at [facility] and discharged on 12/02/2024 worse same complaint and discharged with MiraLax and lactulose with a Fleet enema given prior to discharge Patient now in the ED otherwise denies any other symptoms patient now in the ED has noted blood pressure 146/74 heart rate 50 a otherwise stable vitals including a respiratory rate 18 temperature 97.0 F and O2 saturation of 95% on room air Past Medical history: BPH, AFib, dementia Past Surgical history: eye surgery Medications: MiraLax, lactulose Allergies: denies Social history: denies ETOH, denies tobacco use, denies drug use constipation: HPI: Poor Historian. REVIEW OF SYSTEMS: CONSTITUTIONAL: Denies acute: fever, diaphoresis, chills, generalized weakness. HEAD: Denies acute: headache, photophobia Eyes: Denies acute: Double vision, vision loss, eye pain, eye discharge. EARS: Denies acute: tinnitus, hearing loss, ear discharge, ear pain, THROAT: Denies acute: sore throat, swelling, difficulty swallowing , pain with swallowing, change in voice. NECK: Denies acute: neck pain, neck swelling, stiff neck. HEART: Denies acute : chest pain, palpitations, LUNGS: Denies acute: SOB, wheezing, cough, hemoptysis ABDOMEN: Denies acute: abdominal pain, Nausea, Vomiting, diarrhea, melena , hematemesis, hematochezia SKIN: Denies acute: rash, redness, lesions, itchiness. EXTREMITIES: Denies acute: calf pain, numbness, tingling, weakness, denies pain in extremity. Denies acute: Low back pain. Neuro: Denies acute: focal neurological deficit, motor or sensory focal neurological deficit, tremors, seizure like activity, confusion, dizziness, change in mental status, loss of bowel or bladder function, cauda equina like symptoms. : Denies acute: dysuria, hematuria, flank pain, increase in urinary frequency. PSYCH: Denies acute: hallucination, suicidal ideation, homicidal ideation. PHYSICAL EXAM: General: ----no----acute distress, awake and alert. Head: normocephalic, atraumatic. Neck: supple, trachea is midline, no swelling. Throat: Normal phonation. Eyes:, no erythema, no purulent discharge, no proptosis, no icterus. Heart: regular rate, regular rhythm, no significant murmur appreciated. Lungs: no apparent respiratory distress, Able to speak in full sentences. No wheezing, no rhonchi, no crackles. No stridors Clear to auscultation bilaterally. Abdomen: non tender to palpation, non distended, soft, no guarding, no rebound, + bowel sounds. Neuro: Awake, Alert, oriented to name, self, situation, follows commands GCS=15. Speech is normal. Skin: no petechia, no purpura, no cyanosis, non-pale, not jaundice. Lower extremities: --no - Pitting edema no deformity, no focal swelling, no calf TTP. Makes eye contact. moves all four extremities. Face: no apparent facial droop. Ambulating in the ED independently. ED COURSE: DISCLAIMER: This medical document was created using an electronic medical record system with voice recognition software and computerized dictation system. Although this document has been carefully reviewed, there might still be some phonetic and typographical errors. Occasional wrong-word or "sound-alike" substitutions may have occurred due to the inherent limitations of voice recognition software. These areas are purely typographical due to imperfections of the software programs and do not reflect any compromise in the patient's medical care. Please read the chart carefully and recognize, using context, where these substitutions have occurred. Chief Complaint: Constipation Time Seen by MD: 18:40 Primary Care Provider: UNKNOWN Reviewed Notes: Medications, Allergies Allergies: Coded Allergies: NO KNOWN ALLERGIES (Unverified , 11/20/23) Home Meds Reported Medications Brimonidine Tartrate (Alphagan P) 0.1 % Janeth, 0.1 % OP TID 08/29/13 Latanoprost (LATANOPROST) 0.005 % Jnaeth, 0.005 % OP HS 08/29/13 Timolol Maleate (Ophth) (Timolol Maleate) 0.5 % Janeth, 0.5 % OP BID 08/29/13 Information Source: Patient, Relative (Son ) Mode of Arrival: Ambulatory Brought in by: Son Past Medical History PAST MEDICAL HISTORY: AFIB, Dementia Family History Family History: No family hx of HTN Social History Smoker: Non-Smoker Alcohol: Denies ETOH Use Drugs: Denies Drug Use Lives In: Home Was a procedure done? Was a procedure done?: No X-Ray, Labs, Meds, VS Vital Signs Date Time Temp Pulse Resp B/P (MAP) Pulse Ox O2 Delivery O2 Flow Rate FiO2 12/24/24 17:45 97.0 58 18 146/74 95 97.0 Lab Test 12/24/24 17:56 Range/Units White Blood Count 6.9 4.4-10.8 10^3/uL Red Blood Count 4.40 L 4.5-5.90 10^6/uL Hemoglobin 15.0 13.5-17.5 g/dL Hematocrit 43.4 41.0-53.0 % Mean Corpuscular Volume 98.5 80.0-100.0 fL Mean Corpuscular Hemoglobin 34.0 H 28.0-32.0 pg Mean Corpuscular Hemoglobin Concent 34.5 32.0-36.0 g/dL Red Cell Distribution Width 14.6 H 11.8-14.3 % Platelet Count 148 140-450 10^3/uL Mean Platelet Volume 9.2 6.9-10.8 fL Neutrophils (%) (Auto) 70.4 37.0-80.0 % Lymphocytes (%) (Auto) 17.7 10.0-50.0 % Monocytes (%) (Auto) 8.7 0.0-12.0 % Eosinophils (%) (Auto) 2.3 0.0-7.0 % Basophils (%) (Auto) 0.9 0.0-2.0 % Neutrophils # (Auto) 4.8 1.6-8.6 10 ^3/uL Lymphocytes # (Auto) 1.2 0.4-5.4 10 ^3/uL Monocytes # (Auto) 0.6 0-1.3 10 ^3/uL Eosinophils # (Auto) 0.2 0-0.8 10 ^3/uL Basophils # (Auto) 0.1 0-0.2 10 ^3/uL Nucleated Red Blood Cells 0.0 % Sodium Level 136 136-145 mmol/L Potassium Level 4.6 3.5-5.1 mmol/L Chloride Level 102 98-107 mmol/L Carbon Dioxide Level 27 20-31 mmol/L Anion Gap 7 5-15 Blood Urea Nitrogen 24 H 9-23 mg/dL Creatinine 1.03 0.700-1.30 mg/dL Glomerular Filtration Rate Calc 70 >90 mL/min BUN/Creatinine Ratio 23.3 H 10.0-20.0 Serum Glucose 108 H 74-106 mg/dL Lactic Acid Level 1.1 0.4-2.0 mmol/L Calcium Level 8.9 8.7-10.4 mg/dL Total Bilirubin 0.9 0.2-1.0 mg/dL Aspartate Amino Transferase (AST) 22 13-40 U/L Alanine Aminotransferase (ALT) 13 7-40 U/L Alkaline Phosphatase 84 46-116 U/L Total Protein 6.6 5.7-8.2 g/dL Albumin 3.7 3.2-4.8 g/dL [place] [id number] Ph: [phone] DIAGNOSTIC IMAGING Diagnostic Imaging Report : [id number] Signed PATIENT: JOSUE BALLARDACCT: [id number] UNIT: [id number] : 1935 LOC: ER ROOM / BED: / AGE / SEX: 89 / M ADM STATUS: REG ER SERVICE 174 ORDERING PHYSICIAN: DIRK CESAR DO PROCEDURE(s): ABPL - CT AB PEL WO CON-NO ORAL OR IV REASON: constipation ORDER NUMBER(s): [id number], ACCESSION NUMBER(s): [id number] Exam: CT CT AB PEL WO CON-NO ORAL OR IV History: constipation Comparison Study: CT CT AB PEL WO CON-NO ORAL OR IV on DOS: 12/01/24, [facility]ID[facility] on DOS: 10/10/21 TECHNIQUE: Multidetector CT of the abdomen and pelvis was performed from lung bases to pubic symphysis. Imaging was performed without IV contrast. Axial, coronal, and sagittal multiplanar reformats were obtained from the axial data set by the technologist. RADIATION DOSE: DLP 261.57 mGy.cm; CTDI vol 5.11 mGy. Findings: Lungs: The lung bases are clear. Heart: No cardiomegaly or pericardial effusion. Mild coronary atherosclerosis. Liver: Unremarkable. Gallbladder: Unremarkable. Spleen: Unremarkable Pancreas: Unremarkable Adrenals: Unremarkable Kidneys: Hypodense lesion in the right kidney is incompletely characterized due to noncontrast technique. GI tract: Moderate rectal fecal burden with mild wall thickening. : Unremarkable. Vasculature: Mild to moderate aortoiliac atherosclerosis. Lymphadenopathy: Absent Peritoneum: No ascites Musculoskeletal: Mild multilevel degenerative changes of the thoracolumbar spine. Soft tissues: Unremarkable Impression: 1. No acute abdominopelvic abnormalities. 2. Moderate rectal fecal burden with mild wall thickening. Correlate for stercoral colitis. 3. Similar hypodense lesion in the right kidney. Recommend contrast-enhanced MRI for further evaluation. ATED BY: SUNITA REDDY DO DICTATED DATE/TIME: 12/24/241848 SIGNED BY: SUNITA REDDY DO SIGNED DATE/TIME: 12/24/241848 CC: Patient Education/Counseling: Diagnosis, Treatment Family Education/Counseling: Diagnosis, Treatment SEPSIS Sepsis Screen Date sepsis recognized/suspect: Dec 24, 2024 Time Sepsis recognized/suspect: 1746 Recent Procedure: No On Antibiotic Therapy: No Respiratory Rate >20: No Heart Rate >90: No Temp<36 C (96.8 F) or >38.3 C: No SBP <90 or MAP <65 mmHG: No New Acute Mental Status Change: No Is the patient on CPAP, BIPAP,: No Physician Orders Buckle Attaching Machine Operator (12/24/24 ) Urinalysis (12/24/24 17:49) Ct Ab Pel Wo Con-No Oral Or Iv (12/24/24 17:49) Tap Water Enema (12/24/24 18:41) Vital Signs Date Time Temp Pulse Resp B/P (MAP) Pulse Ox O2 Delivery O2 Flow Rate FiO2 12/24/24 17:45 97.0 58 18 146/74 95 97.0 Laboratory Tests Test 12/24/24 17:56 Lactic Acid Level 1.1 mmol/L (0.4-2.0) White Blood Count 6.9 10^3/uL (4.4-10.8) Departure 1 Departure Time of Disposition: 19:11 Impression: Primary Impression: Stercoral colitis Additional Impression: Constipation Disposition: 01 HOME / SELF CARE / HOMELESS Condition: Stable Additional Instructions: Additional instructions: Please read all instructions provided in this packet carefully. You MUST follow-up with your primary care/family doctor in 1 to 2 days. If you are unable to see your primary care/family doctor, please return to our emergency room for re-assessment and re-evaluation in 1 to 2 days. Return to the emergency room here in our facility or to the nearest ER [facility] if your symptoms change or worsen. CONSULTATIONS: you MUST Follow-up for consultation as soon as possible with: -gastroenterology in 1-2 days. Please call for appointment. You MUST call the consultants office yourself to make an appointment. You may need to arrange that through your insurance and/or your primary/family doctor. If you are unable to see the outbound sales consultant in 1 to 2 days, you must return to our emergency room (or any other ER of your choice) for re-assessment and re- evaluation. Adequate fluid hydration. Although you have been discharged from the Emergency Department, this does not mean that you have a "clean bill of health". No definitive diagnosis for your symptoms has been made today. It is possible that you are in the process of developing a serious illness. This is why you must return to the ED without fail if any new or worsening symptoms develop. Increase fiber intake. Finish the GoLYTELY bottle at home in the next 12 hours Below is a copy of your radiological report for follow up: Discharged With: Self, Relative Critical Care Note Critical Care Time?: No I personally scribed for DIRK CESAR DO ([email or web address]) on 12/24/24 at 18:41. Electronically submitted by Hoa Jacobs ([email or web address]). I personally scribed for DIRK CESAR DO ([email or web address]) on 12/24/24 at 18:54. Electronically submitted by Hoa Jacobs ([email or web address]). DIRK CESAR DO Dec 24, 2024 18:41
--- NOTE | 2024-12-24 18:51 | DVH ---
Exam: CT CT AB PEL WO CON-NO ORAL OR IV History: constipation Comparison Study: CT CT AB PEL WO CON-NO ORAL OR IV on DOS: 12/01/24, [facility]IDC on DOS: 10/10/21 TECHNIQUE: Multidetector CT of the abdomen and pelvis was performed from lung bases to pubic symphysi s. Imaging was performed without IV contrast. Axial, coronal, and sagittal multiplanar reformats were obtained from the axial data set by the technologist. RADIATION DOSE: DLP 261.57 mGy.cm; CTDI vol 5.11 mGy. Findings: Lungs: The lung bases are clear. Heart: No cardiomegaly or pericardial effusion. Mild coronary atherosclerosis. Liver: Unremarkable. Gallbladder: Unremarkable. Spleen: Unremarkable Pancreas: Unremarkable Adrenals: Unremarkable Kidneys: Hypodense lesion in the right kidney is incompletely characterized due to noncontrast techni que. GI tract: Moderate rectal fecal burden with mild wall thickening. : Unremarkable. Vasculature: Mild to moderate aortoiliac atherosclerosis. Lymphadenopathy: Absent Peritoneum: No ascites Musculoskeletal: Mild multilevel degenerative changes of the thoracolumbar spine. Soft tissues: Unremarkable Impression: 1. No acute abdominopelvic abnormalities. 2. Moderate rectal fecal burden with mild wall thickening. Correlate for stercoral colitis. 3. Similar hypodense lesion in the right kidney. Recommend contrast-enhanced MRI for further evaluat ion.
[2024-12-24 20:22] VITALS: BP 138/71; TEMP 98.3
[2024-12-24 20:23] VITALS: PULSE 68; RESP 18; O2SAT 98
[2024-12-24] MEDS: LACTULOSE 20Gm/30ML SOLN PO ONE (20:29)
[2024-12-24] MEDS: GOLYTELY 4L KIT PO ONE (20:34)
== END 2024-12-24 20:39 | disposition home or self-care (01) ==
LOC: ER 17:46
DX: K52.89 Other specified noninfective gastroenteritis and colitis (principal); K59.00 Constipation, unspecified; I48.91 Unspecified atrial fibrillation; F03.90 Unspecified dementia, unspecified severity, without behavioral disturbance, psychotic disturbance, mood disturbance, and anxiety; N40.0 Benign prostatic hyperplasia without lower urinary tract symptoms; Z79.899 Other long term (current) drug therapy
CPT/HCPCS: 36415; 74176; 80053; 83605; 85025

== ENCOUNTER 2025-01-24 13:05 | Emergency (ER) | payer OTHER ==
[~2025-01-24] VITALS: Ht 175.3 cm; Wt 60.8 kg
--- NOTE | 2025-01-24 14:00 | ED.PDOC ---
General HPI Comments This is an 89 year-old male who presents to the ED with a chief complaint of inability to void with associated pain for X2 days. Per son, patient has been experiencing urinary retention, with some urinary leakage noted. Patient has a PMHx of UT and Dementia. Patient has no further complaints at this time and otherwise denies further associated symptoms of dizziness, abdominal pain, hematuria, fever, or chills. Chief Complaint: Urinary Time Seen by MD: 13:36 Primary Care Provider: UNKNOWN Reviewed notes: Medications, Allergies Allergies: Coded Allergies: NO KNOWN ALLERGIES (Unverified , 11/20/23) Home Meds Reported Medications Brimonidine Tartrate (Alphagan P) 0.1 % Janeth, 0.1 % OP TID 08/29/13 Latanoprost (LATANOPROST) 0.005 % Janeth, 0.005 % OP HS 08/29/13 Timolol Maleate (Ophth) (Timolol Maleate) 0.5 % Janeth, 0.5 % OP BID 08/29/13 Information Source: Relative (Child) Mode of Arrival: Ambulatory Severity: Moderate Timing: Days Duration: Since onset Onset: Spontaneous associated signs and symptoms: Inability to Void Past Medical History PAST MEDICAL HISTORY: AFIB, Dementia Family History Family History: No family hx of HTN Social History Smoker: Non-Smoker Alcohol: Denies ETOH Use Drugs: Denies Drug Use Lives In: Home Constitutional: denies: chills, diaphoresis, fatigue, fever, malaise, sweats, weakness, others EENTM: denies: blurred vision, double vision, ear bleeding, ear discharge, ear drainage, ear pain, ear ringing, eye pain, eye redness, hearing loss, mouth pain, mouth swelling, nasal discharge, nose bleeding, nose congestion, nose pain, photophobia, tearing, throat pain, throat swelling, voice changes, others Respiratory: denies: cough, hemoptysis, orthopnea, SOB at rest, shortness of breath, SOB with excertion, stridor, wheezing, others Cardiovascular: denies: chest pain, dizzy spells, diaphoresis, Dyspnea on exertion, edema, irregular heart beat, left arm pain, lightheadedness, palpitations, PND, syncope, others Gastrointestinal: denies: abdomen distended, abdominal pain, blood streaked bowels, constipated, diarrhea, dysphagia, difficulty swallowing, hematemesis, melena, nausea, poor appetite, poor fluid intake, rectal bleeding, rectal pain, vomiting, others Genitourinary: reports: pain, others (urinary retention ); denies: burning, dysuria, flank pain, frequency, hematuria, incontinence, penile discharge, penile sore, testicle pain, testicle swelling, urgency Neurological: denies: dizziness, fainting, headache, left sided numbness, left sided weakness, numbness, paresthesia, pre-existing deficit, right sided numbness, right sided weakness, seizure, speech problems, tingling, tremors, weakness, others Musculoskeletal: denies: back pain, gout, joint pain, joint swelling, muscle pain, muscle stiffness, neck pain, others Integumetry: denies: bruises, change in color, change in hair/nails, dryness, laceration, lesions, lumps, rash, wounds, others Allergic/Immunocompromised: denies: Difficulty Healing, Frequent Infections, Hives, Itching, others Hematologic/Lymphatic: denies: anemia, blood clots, easy bleeding, easy bruising, swollen glands, others Endocrine: denies: excessive hunger, excessive sweating, excessive thirst, excessive urination, flushing, intolerance to cold, intolerance to heat, unexplained weight gain, unexplained weight loss, others Psychiatric: denies: anxiety, bipolar disorder, depression, hopeless, panic disorder, schizophrenia, sleepless, suicidal, others All Other Systems: Reviewed and Negative Physical Exam General Appearance: Moderate Distress HEENT: Normal ENT Inspection, Pharynx Normal, TMs Normal Neck: Full Range of Motion, Non-Tender, Normal, Normal Inspection Respiratory: Chest Non-Tender, Lungs Clear, No Accessory Muscle Use, No Respiratory Distress, Normal Breath Sounds Cardiovascular: No Edema, No JVD, No Murmur, No Gallop, Normal Peripheral Pulses, Regular Rate/Rhythm Breast Exam: Deferred Gastrointestinal: No Organomegaly, Non Tender, No Pulsatile Mass, Normal Bowel Sounds, Soft Genitalia: Deferred Pelvic: Deferred Rectal: Deferred Extremities: No calf tenderness, Normal capillary refill, Normal inspection, Normal range of motion, Non-tender, No pedal edema Musculoskeletal : Apperance: Normal Neurologic: Alert, financial services rep II-XII nml as Tested, No Motor Deficits, Normal Affect, Normal Mood, No Sensory Deficits Cerebellar Function: Normal Reflexes: Normal Skin: Dry, Normal Color, Warm Peripheral Pulses: 3+ Radial (R), 3+ Radial (L) Lymphatic: No Adenopathy Was a procedure done? Was a procedure done?: No Differential Diagnosis Kidney stone (Female): Musculoskeletal pain, Urinary obstruction, Urolithiasis Urinary Problem (Male): Prostatitis, Urethritis, Urolithiasis, UTI X-Ray, Labs, Meds, VS Vital Signs Date Time Temp Pulse Resp B/P (MAP) Pulse Ox O2 Delivery O2 Flow Rate FiO2 01/24/25 16:02 97.8 52 16 135/64 (87) 98 97.8 01/24/25 16:02 52 16 98 Room Air 01/24/25 13:06 99.3 55 16 121/67 97 99.3 Lab Test 01/24/25 15:11 Range/Units Urine Color Light-yellow Yellow Urine Clarity Clear Clear Urine pH 5.0 5.0-9.0 Urine Specific [place] 1.014 1.001-1.035 Urine Protein Negative Negative Urine Ketones Negative Negative Urine Blood Negative Negative /uL Urine Nitrite Negative Negative Urine Bilirubin Negative Negative Urine Urobilinogen Normal Negative mg/dL Urine Leukocyte Esterase Trace Negative /uL Urine RBC 1 0 - 3 /hpf Urine Microscopic WBC 5 H 0-3 /HPF Urine Squamous Epithelial Cells None seen <5 /hpf Urine Bacteria None seen None Seen /hpf Urine Mucus Few None Seen Urine Glucose Normal Normal mg/dL Patient alert. Vitals stable. Urinary retention. Answering questions. Has a history of dementia. Son at bedside. Placed a Cota catheter. UA shows UTI. Was given prescription of Keflex antibiotic. Explained to the family. Was told to follow up with his primary care physician. Was told to come back if there is any problem. Time of 1ST Reevaluation: 14:45 Reevaluation 1ST: Improved Patient Education/Counseling: Diagnosis, Treatment Family Education/Counseling: Diagnosis, Treatment SEPSIS Sepsis Screen Date sepsis recognized/suspect: Jan 24, 2025 Time Sepsis recognized/suspect: 1306 Recent Procedure: No On Antibiotic Therapy: No Respiratory Rate >20: No Heart Rate >90: No Temp<36 C (96.8 F) or >38.3 C: No SBP <90 or MAP <65 mmHG: No New Acute Mental Status Change: No Is the patient on CPAP, BIPAP,: No Physician Orders Insert Cota Catheter QSHIFT (01/24/25 15:15) Vital Signs Date Time Temp Pulse Resp B/P (MAP) Pulse Ox O2 Delivery O2 Flow Rate FiO2 01/24/25 16:02 97.8 52 16 135/64 (87) 98 97.8 01/24/25 16:02 52 16 98 Room Air 01/24/25 13:06 99.3 55 16 121/67 97 99.3 Departure 1 Departure Time of Disposition: 15:18 Impression: Primary Impression: Urinary retention Additional Impression: UTI (urinary tract infection) Qualified Codes: N30.00 - Acute cystitis without hematuria Disposition: 01 HOME / SELF CARE / HOMELESS Condition: Good e-Prescriptions Cephalexin (KEFLEX CAPSULE) 250 Mg Cp 250 MG PO QID for 5 Days, #20 BOTTLE Prov: HAEVEN TOMAS MD 01/24/25 Discharged With: Relative (Sibling) Critical Care Note Critical Care Time?: No Stability Stability form required: No Heart Score Heart Score: Heart Score Response (Comments) Value History N/A 0 EKG N/A 0 Age N/A 0 Risk Factors N/A 0 Troponin N/A 0 Total 0 I personally scribed for HEAVEN TOMAS MD ([email or web address]) on 01/24/25 at 14:00. Electronically submitted by Keshia Bailey ([facility]). HEAVEN TOMAS MD Jan 24, 2025 14:00
[2025-01-24 15:18] LABS: Urine Protein, UAD Negative (Negative)
[2025-01-24 16:02] VITALS: BP 135/64; TEMP 97.8
[2025-01-24] MEDS ORDERED: CEPH250C PO (16:08)
[2025-01-24 16:13] VITALS: PULSE 52; RESP 16; O2SAT 98
== END 2025-01-24 16:14 | disposition home or self-care (01) ==
LOC: ER 13:05
DX: N39.0 Urinary tract infection, site not specified (principal); R33.9 Retention of urine, unspecified; F03.90 Unspecified dementia, unspecified severity, without behavioral disturbance, psychotic disturbance, mood disturbance, and anxiety; I48.91 Unspecified atrial fibrillation; Z79.899 Other long term (current) drug therapy
CPT/HCPCS: 51702; 81001; 99284; A4315

== ENCOUNTER 2025-01-26 14:33 | Outpatient (CLI) | payer OTHER ==
[~2025-01-26 14:33] MED LIST changes: +CEPH250C PO
== END 2025-01-26 17:00 | disposition home or self-care (01) ==
LOC: LAB 14:33
PROVIDERS: ATTEND Urology
DX: N40.1 Benign prostatic hyperplasia with lower urinary tract symptoms (principal)
CPT/HCPCS: 84153; 87086

== ENCOUNTER 2025-02-16 12:06 | Outpatient (CLI) | payer OTHER ==
[2025-02-16 12:35] LABS: Hematocrit 46.0 % (41.0-53.0); Hemoglobin 15.5 g/dL (13.5-17.5); Mean Corpuscular Hemoglobin 33.7 pg (28.0-32.0); Mean Corpuscular Volume 100.5 fL (80.0-100.0); Nucleated Red Blood Cells % 0.2 %
[2025-02-16 13:04] LABS: Blood Urea Nitrogen 28.0 mg/dL (9-23)
== END 2025-02-16 17:00 | disposition home or self-care (01) ==
LOC: LAB 12:06
PROVIDERS: ATTEND Internal Medicine
DX: I10 Essential (primary) hypertension (principal); E78.5 Hyperlipidemia, unspecified; F02.80 Dementia in other diseases classified elsewhere, unspecified severity, without behavioral disturbance, psychotic disturbance, mood disturbance, and anxiety; N28.89 Other specified disorders of kidney and ureter
CPT/HCPCS: 36415; 82306; 82565; 82607; 84520; 85025